=== PATIENT | male | born 1960 | race Caucasian/White ===

== ENCOUNTER 2020-04-29 02:37 | Inpatient (IN) ==
[2020-04-29] MEDS ORDERED: LORazepam 1 MG TAB SL STA (02:58)
--- NOTE | 2020-04-29 03:07 | Emergency Department Note ---
Impression & Plan Hypokalemia, Thought disorder, Alcohol abuse ED Provider Note NAME: ALEKSANDAR PIPER AGE: 59 SEX: M ARRIVES VIA: Ambulance INFORMANT: Patient EMS and state police ED PROVIDER(S): Sobeida Donnelly DO CHIEF COMPLAINT: Hypertension, hallucinations PLAN: Disposition: Medically evaluated for admission by the [facility] hospitalist Condition: Fair MEDICAL DECISION MAKING: This is a 59-year-old male patient from [facility] who developed agitation and aggressive behavior. The patient's blood pressure significantly elevated and he began to threaten staff. Patient has no known mental health history. He was in rehab at [facility] for alcohol abuse. The patient now seems extremely preoccupied with christianity and is not willing to cooperate with general medical evaluation for his altered mental status, new onset hallucinations and delusional behavior. The patient now seems to have new onset psychosis. We needed to rule out acute medical cause of his presentation. He required sedation with Haldol and Ativan. He was found to be hypokalemic and required IV potassium. The patient will be medically admitted and then further evaluated by psychiatry. Triage Nursing notes reviewed and agree them. Additional history obtained from [facility] police; EMS Prior medical records reviewed including records from [facility]. Vital Signs: reviewed and remarkable for severely elevated high blood pressure Differential diagnosis: Acute psychosis, alcohol withdrawal, Warnicke's encephalopathy, hepatic encephalopathy, hypertensive encephalopathy, intracranial mass, acute psychosis, thought disorder, mood disorder ER treatment provided: Sublingual Ativan-the patient refused IM Ativan IM Haldol IV K rider x2 IV normal saline bolus IV banana bag Diagnostics interpreted by me: ECG: Normal sinus rhythm at 89 with criteria for LVH. There is no ST segment elevation or signs of ischemia. There is no ectopy. Cardiac Monitoring: None Laboratory studies: See below Imaging studies: As per radiology CT SCAN OF THE BRAIN WITHOUT IV CONTRAST CLINICAL HISTORY: Change in mental status. COMPARISON STUDY: No priors. TECHNIQUE: Unenhanced axial CT scan of the brain is performed from the vertex to the skull base. A dose lowering technique was utilized adhering to the arabella Velez. CT DOSE: 537.48 mGy.cm FINDINGS: Brain parenchyma: There are age-related involutional changes noting mild subcortical and periventricular microangiopathic change. There is no hemorrhage, mass effect, or evidence of acute territorial ischemia by CT criteria. Hernadez- white matter differentiation is preserved. No extra-axial fluid collection is seen. Mineralization is noted in the basal ganglia. Ventricles, sulci, cisterns: Prominent secondary to involutional change. Intracranial vasculature: There is atherosclerotic calcification of the cavernous carotid arteries. Calvarium: Unremarkable. Sinuses and mastoids: The visualized paranasal sinuses are clear. The mastoid air cells are well pneumatized. Orbits: The bony orbits are grossly intact. There is a left ocular lens implant. IMPRESSION: There is no hemorrhage, mass effect, or evidence of acute territorial ischemia by CT criteria. HPI: 59/M arrives for evaluation of visual hallucinations and agitation. This is a 59-year-old male patient who is currently attending rehab for alcohol at [facility]. The staff explained that the patient was doing well over the past couple of days since he was admitted there but then this evening became more agitated and developed significantly elevated blood pressure. The patient says he has a history of schizophrenia and bulimia but then says that he does not. He explains that his and 2 children are in the room with him. He is obviously having visual hallucinations. He told me that he found God when he arrived at [facility]. He told nursing staff that he abuses alcohol and every drug under the son except for heroin. When I asked him about drug use, he denied that he ever used drugs. ROS: I could not complete a review of systems secondary to the patient's delirium PAST MEDICAL HISTORY:Unobtainable from patient due to his delirium PAST SURGICAL HISTORY:Unobtainable from patient due to his delirium FAMILY HISTORY:Unobtainable from patient due to his delirium SOCIAL HISTORY:He tells me that he is and has 2 grown children HOME MEDICATIONS:See list ALLERGIES:None VITALS:See Below PHYSICAL EXAMINATION: HEENT: Head - normocephalic and atraumatic Pupils are equal, round, and reactive to light. Extraocular eye muscles are intact, and sclera are anicteric. Nose - moist nasal mucosa without discharge. Mouth - moist buccal mucosa. Oropharynx is nonerythematous and there is no tonsillar exudate or jackson ma noted. Neck: Supple; no JVD or cervical lymphadenopathy Heart: Regular rate and rhythm. There is a normal S1 and S2 with no murmurs, clicks, or gallops appreciated. Lungs: Clear to auscultation bilaterally with no wheezes, rales, or rhonchi. Abdomen: Soft, completely nontender, nondistended, with good bowel sounds. There are no palpable pulsatile masses or hepatosplenomegaly. There is no gua rding, rigidity, or rebound noted. Extremities: No evidence of cyanosis, clubbing, or edema. There are easily palpable peripheral pulses. Skin: warm and dry with good turgor and no rashes. Psych: The patient is easily agitated with a flight of thoughts. He is having obvious visual hallucinations. He seems to be delirious. ED COURSE: Times/Reassessments: 0240: The patient was evaluated in room A6. I was accompanied by security and the ED psychiatric classification case manager. The patient was agreeable to have labs drawn but declined taking sublingual Ativan. 0430: I waited the patient at this time and he was praying on his knees. 0600: A 302 was petitioned and the patient was read his rights as he is unable to care for himself. The patient received 10 mg of IM Haldol and 2 mg of IM Ativan. At this time, the patient became more cooperative and an IV lock was initiated and the patient began to receive IV potassium supplementation. He was placed on a monitoring manager and pulse oximeter. A twelve-lead EKG was obtained. 0800: I discussed the case with the [facility] hospitalist service. Sobeida Donnelly DO Past Med/Surg History Social History Smoking Status: Never smoker Allergies Allergies Allergy/AdvReac Type Severity Reaction Status Date / Time No Known Drug Allergies Allergy Unknown . Verified 01/27/16 11:03 Home Meds Home Medications Medication Instructions Recorded Confirmed diazepam [Valium] 5 mg PO DAILY 04/29/20 04/29/20 escitalopram oxalate [Lexapro] 20 mg PO DAILY 04/29/20 04/29/20 folic acid 1 mg PO DAILY 04/29/20 04/29/20 thiamine HCl (vitamin B1) 100 mg PO DAILY 04/29/20 04/29/20 vitamin M78-[id number] acid 1,000 mcg PO DAILY 04/29/20 04/29/20 Results & Data (ED) Vital Signs Vital Signs - 24 hr 04/29/20 02:46 04/29/20 04:34 04/29/20 06:10 Temperature 37 C Temperature Source Oral Pulse Rate 95 H Pulse Rate [Finger] 101 H Pulse Rhythm [Finger] Regular Pulse Strength [Finger] Normal Respiratory Rate 20 22 18 Respiratory Effort / Characteristics Non-Labored Spontaneous Non-Labored Respiratory Depth Normal Normal Respiratory Pattern Regular Blood Pressure 219/130 H Blood Pressure [Left Arm] 190/103 H Blood Pressure [Right Arm] 183/118 H Blood Pressure Mean 159 Blood Pressure Mean [Left Arm] 132 Blood Pressure Mean [Right Arm] 139 Blood Pressure Position [Left Arm] Lying Pulse Oximetry 98 98 96 Oxygen Delivery Method Room Air Room Air Room Air Sepsis Recent Fever Within 48 Hours No Sepsis New/Unexplained Change in Mental Status Yes Sepsis Action Taken by Nursing No Action Required 04/29/20 06:41 04/29/20 07:00 04/29/20 07:30 Temperature Temperature Source Pulse Rate Pulse Rate [Finger] 94 H 82 69 Pulse Rhythm [Finger] Regular Regular Pulse Strength [Finger] Respiratory Rate 20 18 17 Respiratory Effort / Characteristics Non-Labored Spontaneous Non-Labored Spontaneous Non-Labored Spontaneous Respiratory Depth Normal Normal Normal Respiratory Pattern Regular Regular Blood Pressure Blood Pressure [Left Arm] 167/100 H 136/82 103/68 Blood Pressure [Right Arm] Blood Pressure Mean Blood Pressure Mean [Left Arm] 122 100 79 Blood Pressure Mean [Right Arm] Blood Pressure Position [Left Arm] Pulse Oximetry 98 98 96 Oxygen Delivery Method Room Air Room Air Room Air Sepsis Recent Fever Within 48 Hours Sepsis New/Unexplained Change in Mental Status Sepsis Action Taken by Nursing Laboratory Data Result diagrams: 04/29/20 03:30 04/29/20 03:30 Lab Results 04/29/20 04/29/20 04/29/20 Range/Units 03:30 03:30 03:30 WBC 4.03 L (4.8-10.8) K/uL RBC 4.08 L (4.7-6.1) M/uL Hgb 13.2 L (14.0-18.0) g/dL Hct 37.7 L (42-52) % MCV 92.4 (80-100) fL MCH 32.4 (25-34) pg MCHC 35.0 (32-36) g/dL RDW Std Deviation 45.8 (36.4-46.3) fL RDW Coeff of Patti 13.5 (11.5-14.5) % Plt Count 142 (130-400) K/uL MPV 9.0 (7.4-10.4) fL Immature Gran % (Auto) 0.2 % Neut % (Auto) 64.8 % Lymph % (Auto) 22.6 % [place] % (Auto) 9.2 % Eos % (Auto) 2.2 % Baso % (Auto) 1.0 % Neut # (Auto) 2.61 (1.4-6.5) K/uL Lymph # (Auto) 0.91 L (1.2-3.4) K/uL [place] # (Auto) 0.37 (0.11-0.59) K/uL Eos # (Auto) 0.09 (0-0.5) K/uL Baso # (Auto) 0.04 (0-0.2) K/uL Immature Gran # (Auto) 0.01 (0.00-0.02) K/uL Sodium 141 (136-145) mmol/L Potassium 2.8 L (3.5-5.1) mmol/L Chloride 108 H (98-107) mmol/L Carbon Dioxide 26 (21-32) mmol/L Anion Gap 7.0 (3-11) BUN 13 (7-18) mg/dl Creatinine 1.10 (0.6-1.4) mg/dl Est Cr Clr Drug Dosing Not Reportable Est GFR ( Amer) 84.1 Est GFR (Non-Af Amer) 72.6 BUN/Creatinine Ratio 12.0 (10-20) Glucose 102 H (70-99) mg/dl Calcium 8.3 L (8.5-10.1) mg/dl Total Bilirubin 0.7 (0.2-1) mg/dl AST 65 H (15-37) U/L ALT 48 (12-78) U/L Alkaline Phosphatase 101 (45-117) U/L Total Protein 7.3 (6.4-8.2) gm/dl Albumin 3.6 (3.4-5.0) gm/dl Globulin 3.7 (2.5-4.0) gm/dl Albumin/Globulin Ratio 1.0 (0.9-2) TSH 5.270 H (0.300-4.500) uIu/ml Free T4 0.94 (0.8-1.6) ng/dl Urine Color Urine Appearance (Clear) Urine pH (4.5-7.5) Ur Specific [place] (1.000-1.030) Urine Protein (Negative) Urine Glucose (UA) (Negative) Urine Ketones (Negative) Urine Blood (Negative) Urine Nitrite (Negative) Urine Bilirubin (Negative) Urine Urobilinogen (Negative) Ur Leukocyte Esterase (Negative) Salicylates < 1.7 L (2.8-20) mg/dl Urine Opiates Screen (Neg) Ur Methadone, Qual (Neg) Acetaminophen < 2 L (10-30) ug/ml Urine Barbiturates (Neg) Ur Phencyclidine (PCP) (Neg) U Amphetamin/Meth Scrn (Neg) MDMA (Ecstasy) Screen (Neg) U Benzodiazepines Scrn (Neg) Ur Cocaine Metabolite (Neg) U Marijuana (THC) Screen (Neg) Ethyl Alcohol mg/dL (0-3) mg/dl 04/29/20 04/29/20 04/29/20 Range/Units 03:30 06:28 06:28 WBC (4.8-10.8) K/uL RBC (4.7-6.1) M/uL Hgb (14.0-18.0) g/dL Hct (42-52) % MCV (80-100) fL MCH (25-34) pg MCHC (32-36) g/dL RDW Std Deviation (36.4-46.3) fL RDW Coeff of Patti (11.5-14.5) % Plt Count (130-400) K/uL MPV (7.4-10.4) fL Immature Gran % (Auto) % Neut % (Auto) % Lymph % (Auto) % [place] % (Auto) % Eos % (Auto) % Baso % (Auto) % Neut # (Auto) (1.4-6.5) K/uL Lymph # (Auto) (1.2-3.4) K/uL [place] # (Auto) (0.11-0.59) K/uL Eos # (Auto) (0-0.5) K/uL Baso # (Auto) (0-0.2) K/uL Immature Gran # (Auto) (0.00-0.02) K/uL Sodium (136-145) mmol/L Potassium (3.5-5.1) mmol/L Chloride (98-107) mmol/L Carbon Dioxide (21-32) mmol/L Anion Gap (3-11) BUN (7-18) mg/dl Creatinine (0.6-1.4) mg/dl Est Cr Clr Drug Dosing Est GFR ( Amer) Est GFR (Non-Af Amer) BUN/Creatinine Ratio (10-20) Glucose (70-99) mg/dl Calcium (8.5-10.1) mg/dl Total Bilirubin (0.2-1) mg/dl AST (15-37) U/L ALT (12-78) U/L Alkaline Phosphatase (45-117) U/L Total Protein (6.4-8.2) gm/dl Albumin (3.4-5.0) gm/dl Globulin (2.5-4.0) gm/dl Albumin/Globulin Ratio (0.9-2) TSH (0.300-4.500) uIu/ml Free T4 (0.8-1.6) ng/dl Urine Color Yellow Urine Appearance Clear (Clear) Urine pH 5.5 (4.5-7.5) Ur Specific [place] 1.025 (1.000-1.030) Urine Protein Negative (Negative) Urine Glucose (UA) Negative (Negative) Urine Ketones 1+ H (Negative) Urine Blood Negative (Negative) Urine Nitrite Negative (Negative) Urine Bilirubin Negative (Negative) Urine Urobilinogen Negative (Negative) Ur Leukocyte Esterase Negative (Negative) Salicylates (2.8-20) mg/dl Urine Opiates Screen Neg (Neg) Ur Methadone, Qual Neg (Neg) Acetaminophen (10-30) ug/ml Urine Barbiturates Neg (Neg) Ur Phencyclidine (PCP) Neg (Neg) U Amphetamin/Meth Scrn Neg (Neg) MDMA (Ecstasy) Screen Neg (Neg) U Benzodiazepines Scrn Pos H (Neg) Ur Cocaine Metabolite Neg (Neg) U Marijuana (THC) Screen Neg (Neg) Ethyl Alcohol mg/dL < 3.0 (0-3) mg/dl Administered Medications Potassium Chloride (K Amado / Wtr) 10 meq in 100 mls @ 100 mls/hr IV Q1H TEGAN Stop: 04/29/20 08:14 Last Admin: 04/29/20 07:20 Dose: 100 mls/hr Documented by: [id number] Infusion: 04/29/20 07:14 Dose: 100 mls/hr Documented by: [id number] Admin: 04/29/20 06:14 Dose: 100 mls/hr Documented by: [id number] Discontinued Medications Haloperidol Lactate (Haloperidol Lactate 5 Mg/Ml 1 Ml Vial) Confirm Administered Dose 10 mg .ROUTE .STK-MED ONE Stop: 04/29/20 05:54 Last Admin: 04/29/20 06:00 Dose: 10 mg Documented by: [id number] Haloperidol Lactate (Haloperidol Lactate 5 Mg/Ml 1 Ml Vial) 10 mg IM NOW STA Stop: 04/29/20 06:29 Last Admin: 04/29/20 06:43 Dose: Not Given Documented by: [id number] Sodium Chloride (Nss) 500 mls @ 999 mls/hr IV .Q31M ONE Stop: 04/29/20 06:35 Last Infusion: 04/29/20 06:56 Dose: 0 mls/hr Documented by: [id number] Admin: 04/29/20 06:12 Dose: 999 mls/hr Documented by: [id number] Lorazepam (Lorazepam 1 Mg Tab) 2 mg SL NOW STA Stop: 04/29/20 02:59 Last Admin: 04/29/20 05:12 Dose: Not Given Documented by: [id number] Lorazepam (Lorazepam 2 Mg/Ml Vial (Im Use)) Confirm Administered Dose 2 mg .ROUTE .STK-MED ONE Stop: 04/29/20 05:54 Last Admin: 04/29/20 06:00 Dose: 2 mg Documented by: [id number] Lorazepam (Lorazepam 2 Mg/Ml Vial (Im Use)) 2 mg IM NOW STA Stop: 04/29/20 06:29 Last Admin: 04/29/20 06:43 Dose: Not Given Documented by: [id number] Potassium Chloride (Potassium Chloride 10 Meq / 100ml Wtr) Confirm Administered Dose 10 meq IV .STK-MED ONE Stop: 04/29/20 06:06 Last Admin: 04/29/20 06:14 Dose: Not Given Documented by: [id number] Discharge Plan Visit Data Chief Complaint: Mental Health Evaluation Stated Complaint: PANIC ATTACK/ALTERED MENTAL STATUS ED Provider: Sobeida Donnelly Discharge Problem: Hypokalemia, Thought disorder, Alcohol abuse Forms Stand Alone Forms: [facility], Suicide Prevention Resources Prescriptions Prescriptions: No Action thiamine HCl (vitamin B1) 100 mg Tablet 100 mg PO DAILY RF: 0 folic acid 1 mg Tablet 1 mg PO DAILY RF: 0 diazepam [Valium] 5 mg Tablet 5 mg PO DAILY RF: 0 escitalopram oxalate [Lexapro] 20 mg Tablet 20 mg PO DAILY RF: 0 vitamin W40-targt acid 1,000 mcg PO DAILY RF: 0
[2020-04-29 03:46] LABS: Basophils # (auto) 0.04 K/uL (0-0.2); Eosinophils # (auto) 0.09 K/uL (0-0.5); Eosinophils % (auto) 2.2 %; Hematocrit (blood only) 37.7 % (42-52); Hemoglobin 13.2 g/dL (14.0-18.0); Immature Granulocytes # (auto) 0.01 K/uL (0.00-0.02); Immature Granulocytes % (auto) 0.2 %; Lymphocytes # (auto) 0.91 K/uL (1.2-3.4); Lymphocytes % (auto) 22.6 %; Mean Corpuscular Hemoglobin 32.4 pg (25-34); Mean Corpuscular Volume 92.4 fL (80-100); Monocytes # (auto) 0.37 K/uL (0.11-0.59); Monocytes % (auto) 9.2 %; Neutrophils # (auto) 2.61 K/uL (1.4-6.5); Neutrophils % (auto) 64.8 %; Platelet Count 142 K/uL (130-400); RDW Coefficient of Variation 13.5 % (11.5-14.5); RDW Standard Deviation 45.8 fL (36.4-46.3); Red Blood Count 4.08 M/uL (4.7-6.1); White Blood Count 4.03 K/uL (4.8-10.8)
[2020-04-29 04:02] LABS: Alanine Aminotransferase 48 U/L (12-78); Albumin Level 3.6 gm/dl (3.4-5.0); Aspartate Aminotransferase 65 U/L (15-37); Blood Urea Nitrogen 13 mg/dl (7-18); Calcium 8.3 mg/dl (8.5-10.1); Carbon Dioxide 26 mmol/L (21-32); Chloride 108 mmol/L (98-107); Est GFR (African American) 84.1; Est GFR (Non-African American) 72.6; Glucose 102 mg/dl (70-99); Potassium 2.8 mmol/L (3.5-5.1); Sodium 141 mmol/L (136-145)
[2020-04-29 04:04] LABS: Acetaminophen < 2 ug/ml (10-30); Salicylate < 1.7 mg/dl (2.8-20)
[2020-04-29 04:13] LABS: Alkaline Phosphatase 101 U/L (45-117); Bilirubin,Total 0.7 mg/dl (0.2-1); Globulin 3.7 gm/dl (2.5-4.0); Total Protein 7.3 gm/dl (6.4-8.2)
[2020-04-29 04:25] LABS: T4 Free Thyroxine 0.94 ng/dl (0.8-1.6)
[2020-04-29] MEDS ORDERED: HALOPERIDOL LACTATE 5 MG/ML 1 ML VIAL ONE (05:53)
[2020-04-29] MEDS ORDERED: LORazepam 2 MG/ML VIAL (IM USE) ONE (05:53)
[2020-04-29] MEDS ORDERED: POTASSIUM CHLORIDE 10 MEQ / 100ML WTR IV ONE (06:05)
[2020-04-29] MEDS ORDERED: SODIUM CHLORIDE 0.9% 500 ML IV ONE (06:05)
[2020-04-29] MEDS: POTASSIUM CHLORIDE / WTR 10 MEQ/100 ML PLCT IV SCH ×2 (06:14→07:20)
[2020-04-29] MEDS ORDERED: LORazepam 2 MG/ML VIAL (IM USE) IM STA (06:28)
[2020-04-29] MEDS ORDERED: HALOPERIDOL LACTATE 5 MG/ML 1 ML VIAL IM STA (06:28)
[2020-04-29 06:39] LABS: Appearance Urine Clear (Clear); Bilirubin Urine Negative (Negative); Blood Urine Negative (Negative); Color Urine Yellow; Glucose Urine UA Negative (Negative); Ketones Urine 1+ (Negative); Leukocyte Esterase Urine Negative (Negative); Nitrite Urine Negative (Negative); Protein Urine Negative (Negative); Specific Gravity Urine 1.025 (1.000-1.030); Urobilinogen Urine Negative (Negative); pH Urine 5.5 (4.5-7.5)
[2020-04-29 06:58] LABS: Amphetamines+Metham, Urine Neg (Neg); Barbiturates, Urine Neg (Neg); Benzodiazepine, Urine Pos (Neg); Cocaine, Urine Neg (Neg); MDMA (Ecstacy), Urine Neg (Neg); Methadone, Urine Neg (Neg); Opiate, Urine Neg (Neg); Phencyclidine, Urine Neg (Neg)
--- NOTE | 2020-04-29 07:17 | CT Scan Report ---
CT SCAN OF THE BRAIN WITHOUT IV CONTRAST CLINICAL HISTORY: Change in mental status. COMPARISON STUDY: No priors. TECHNIQUE: Unenhanced axial CT scan of the brain is performed from the vertex to the skull base. A do se lowering technique was utilized adhering to the principles of ALARA. CT DOSE: 537.48 mGy.cm FINDINGS: Brain parenchyma: There are age-related involutional changes noting mild subcortical and periventric ular microangiopathic change. There is no hemorrhage, mass effect, or evidence of acute territorial i schemia by CT criteria. Hernadez-white matter differentiation is preserved. No extra-axial fluid collecti on is seen. Mineralization is noted in the basal ganglia. Ventricles, sulci, cisterns: Prominent secondary to involutional change. Intracranial vasculature: There is atherosclerotic calcification of the cavernous carotid arteries. Calvarium: Unremarkable. Sinuses and mastoids: The visualized paranasal sinuses are clear. The mastoid air cells are well pneu matized. Orbits: The bony orbits are grossly intact. There is a left ocular lens implant. IMPRESSION: There is no hemorrhage, mass effect, or evidence of acute territorial ischemia by CT lilyt tia. ACT 112: Negative or not required by law. Electronically signed by: Hieu Jonas M.D. 04/29/2020 7:16 AM
[2020-04-29] MEDS ORDERED: MULTI-VITAMIN INFUSION 10 ML, THIAMINE HCL 100 MG, FOLIC ACID 1 MG in SODIUM CHLORIDE 0... IV ONE (08:08)
--- NOTE | 2020-04-29 09:24 | History & Physical Report ---
Date of Service April 29, 2020 Assessment & Plan (1) Alcohol withdrawal: Recently admitted at [facility] on 04/24 and discharged to [facility] alcohol rehab on 04/25 Last alcohol drink as per 04/24 Alcohol level in the ER less than 3 Hx of Alcohol withdrawal in the past Received IV Ativan, Hadol and banana bag in the ER Will start on gabapentin and A alcohol withdrawal protocol Will add librim 10mg BID, then taper Continue thiamine and folic acid Will monitor closely for DT Counseling on alcohol cessation (2) Psychosis: (3) Depression: Suicidal ideation Possible related to alcohol withdrawal Vs underlying psychiatric condition and SSRI that can lead to psychosis/manic episode Psych consulted Recommended to hold the Escitalopram for now Currently denies any suicide Will put on 1 to 1 observation (4) Abnormal TSH: Possible related to acute illness Free T4 normal Will need to check TSH in 4 weeks (5) Hypokalemia: Mostly related to diarrhea Potassium on admission 2.8 K replaced Continue monitor BMP Elevated BP Possible related to alcohol withdrawal and hospital setting If BP continues to elevate, will add clonidine prn Continue monitor BP DVT px on lovenox subq Code status FULL CODE History of Present Illness Chief Complaint: Delusional and agitation Primary Care Provider: Sylvia Reza 59 years old male with past medical history of alcohol withdrawal, alcohol abuse, suicidal ideation, anxiety disorder was sent from [facility] alcohol rehab after patient became agitated and aggressive. Patient was recently admitted at [facility] on 04/24 then discharged on 04/25 to [facility] for alcohol abuse and suicidal ideation. In the last admission at [facility], patient was having suicidal thoughts where he expressed about having a loaded gun at home. Now patient developed hallucination, psychosis behavior while getting treatment for alcohol. said that last night pt became diaphoresis, confused with aggressive behavior at [facility]. Blood pressure was elevated. at bedside said patient drinks about 12 pack of beer daily. No prior history of DT, but patient has history of alcohol withdrawal in the past as per . Patient said he is depressed and his mind is racing and he is dealing with a lot right now. said that he was having diarrhea at [facility] that seems to improve. Currently denies any suicidal ideation, or any thoughts of hurting himself or others, chest pain, palpitation, shortness of breath or hearing any voice. Currently on RM A6 lying in bed very calm and cooperative. Allergies Allergy/AdvReac Type Severity Reaction Status Date / Time No Known Drug Allergies Allergy Unknown . Verified 01/27/16 11:03 Home Medications Home Medications Medication Instructions Recorded Confirmed Type diazepam [Valium] 5 mg PO DAILY 04/29/20 04/29/20 History escitalopram oxalate [Lexapro] 20 mg PO DAILY 04/29/20 04/29/20 History folic acid 1 mg PO DAILY 04/29/20 04/29/20 History thiamine HCl (vitamin B1) 100 mg PO DAILY 04/29/20 04/29/20 History vitamin O39-nzkld acid 1,000 mcg PO DAILY 04/29/20 04/29/20 History Past Med/Surg History Social History Smoking Status: Former smoker Second Hand Exposure: No; Do You Dip or Chew Tobacco: No; Tobacco Cessation Education Requested by Patient: No Hx Alcohol Use: Yes Alcohol type: beer Hx Substance Use: No Communication Ability: Effective [employer] Electrician Required: No marital status: Current Living Situation: Spouse Other Information That Helps Us Care for You: No Feels Safe at Home: Yes Review of Systems Review of Systems: All systems reviewed & are unremarkable except as noted in HPI & below Physical Exam Physical Exam: General- No acute distress Head- atraumatic Eyes- PERRL, EOMI, ENT- oropharynx clear Neck- supple, no JVD Lungs- clear to auscultation Heart- regular rhythm; no murmur Abdomen- normal bowel sounds, soft, nontender Extremities- no calf tenderness Neuro- alert, oriented x 3; PERRL, EOMI; no facial palsy; no dysarthria, +tremors and +fingers to touch Skin- warm & dry Results & Data Results & Data ([facility]) Vital Signs (Past 12 Hours) Vital Signs Temp Pulse Pulse Resp BP BP BP 04/29/20 09:00 67 18 142/84 H 04/29/20 07:30 69 17 103/68 04/29/20 07:00 82 18 136/82 04/29/20 06:41 94 H 20 167/100 H 04/29/20 06:10 18 190/103 H 04/29/20 04:34 101 H 22 183/118 H 04/29/20 02:46 37 C 95 H 20 219/130 H Pulse Ox 04/29/20 09:00 97 04/29/20 07:30 96 04/29/20 07:00 98 04/29/20 06:41 98 04/29/20 06:10 96 04/29/20 04:34 98 04/29/20 02:[address] SCAN OF THE BRAIN WITHOUT IV CONTRAST CLINICAL HISTORY: Change in mental status. COMPARISON STUDY: No priors. TECHNIQUE: Unenhanced axial CT scan of the brain is performed from the vertex to the skull base. A dose lowering technique was utilized adhering to the principles of ALARA. CT DOSE: 537.48 mGy.cm FINDINGS: Brain parenchyma: There are age-related involutional changes noting mild subcortical and periventricular microangiopathic change. There is no hemorrhage, mass effect, or evidence of acute territorial ischemia by CT criteria. Hernadez- white matter differentiation is preserved. No extra-axial fluid collection is seen. Mineralization is noted in the basal ganglia. Ventricles, sulci, cisterns: Prominent secondary to involutional change. Intracranial vasculature: There is atherosclerotic calcification of the cavernous carotid arteries. Calvarium: Unremarkable. Sinuses and mastoids: The visualized paranasal sinuses are clear. The mastoid air cells are well pneumatized. Orbits: The bony orbits are grossly intact. There is a left ocular lens implant. IMPRESSION: There is no hemorrhage, mass effect, or evidence of acute territorial ischemia by CT criteria. ACT 112: Negative or not required by law. Electronically signed by: Hieu Jonas M.D. 04/29/2020 7:16 AM Dictated: 04/29/20 0714 Transcribed: 04/29/20 0714
--- NOTE | 2020-04-29 12:48 | Electrocardiogram Report ---
Test Reason : Blood Pressure : / mmHG Vent. Rate : 089 BPM Atrial Rate : 089 BPM P-R Int : 168 ms QRS Dur : 086 ms QT Int : 390 ms P-R-T Axes : 076 046 025 degrees QTc Int : 474 ms Normal sinus rhythm Voltage criteria for left ventricular hypertrophy Cannot rule out Septal infarct , age undetermined Abnormal ECG No previous ECGs available Confirmed by Herbie Aj ([id number]) on 04/29/2020 12:48:00 PM Referred By: REFERRED SELF Confirmed By:Herbie Aj
[2020-04-29] MEDS ORDERED: GABAPENTIN 1200MG ALCOHOL WITHDRAWAL LOAD PO STA (14:20)
[2020-04-29] MEDS ORDERED: POTASSIUM CHLORIDE 20 MEQ TABCR PO STA (14:20)
[2020-04-29] MEDS ORDERED: LORazepam 1 MG/2 ML VIAL IV PRN (14:20)
[2020-04-29] MEDS ORDERED: POTASSIUM CHLORIDE 10 MEQ TABCR PO STA (14:20)
[2020-04-29] MEDS ORDERED: GABAPENTIN 600 MG TAB PO ONE (14:30)
[2020-04-29] MEDS ORDERED: PATIENT'S HEIGHT AND/OR WEIGHT NEEDED SCH (14:30)
--- NOTE | 2020-04-29 16:21 | Communication Note ---
Date of Service: April 29, 2020 Received stat psychiatric consultation on Mr. Villalobos for "suicidal ideation." Confirmed with hospitalist attending that consultation was not intended to be stat, and order was subsequently changed to routine. While our service attempts to meet with the patient and gather available collateral information, I would suggest holding escitalopram. In part, this is due to patient going through alcohol withdrawal, and concern that psychotropic medications can lower the seizure threshold and increase risk of withdrawal seizures. Also, it appears patient is delusional and agitated. While this may be a function of alcohol withdrawal alone, there is also the possibility it is related to an underlying psychiatric condition and escitalopram may increase concern for lyndon/psychosis if there is a more substantial psychiatric condition at play. Will attempt to gather additional information and will follow-up with patient to complete formal psychiatric consultation.
[2020-04-29] MEDS ORDERED: POTASSIUM CHLORIDE 20 MEQ TABCR PO ONE (17:47)
[2020-04-29] MEDS: GABAPENTIN 600 MG TAB PO SCH (21:01)
[2020-04-29] MEDS ORDERED: OLANZAPINE ZYDIS 5 MG ORALLY DIS. TAB PO PRN (21:22)
[2020-04-29] MEDS ORDERED: OLANZapine 10 MG/2.1 ML SDV IM PRN (21:26)
[2020-04-30] MEDS: GABAPENTIN 600 MG TAB PO SCH ×3 (06:02→21:26)
[2020-04-30 07:36] LABS: Blood Urea Nitrogen 5 mg/dl (7-18); Calcium 8.3 mg/dl (8.5-10.1); Carbon Dioxide 26 mmol/L (21-32); Chloride 112 mmol/L (98-107); Est GFR (African American) 108.2; Est GFR (Non-African American) 93.4; Glucose 94 mg/dl (70-99); Magnesium 2.1 mg/dl (1.8-2.4); Potassium 3.8 mmol/L (3.5-5.1); Sodium 143 mmol/L (136-145)
[2020-04-30] MEDS: ENOXAPARIN INJ 40 MG/0.4 ML SYR SQ SCH (08:06)
[2020-04-30] MEDS: CYANOCOBALAMIN 500 MCG TABLET (VITAMIN B-12) PO SCH (08:06)
[2020-04-30] MEDS: FOLIC ACID 1 MG TAB PO SCH (08:06)
[2020-04-30] MEDS: THIAMINE HCL 100 MG TAB PO SCH (08:06)
[2020-04-30] MEDS ORDERED: ESCITALOPRAM OXALATE 20 MG TAB PO SCH (09:00)
[2020-04-30] MEDS ORDERED: LOPERAMIDE HCL 2 MG CAP PO PRN (09:20)
--- NOTE | 2020-04-30 11:30 | Psychiatric Consultation ---
Date of Consultation April 30, 2020 Impression / Recommendations Impression Dr. Susannah Byers was directly involved in review and discussion of the patient's case and participated in medical decision making regarding treatment recommendations. RECOMMENDATIONS: 04/30 - Psychiatric consultation requested by hospitalist team to evaluate patient for suicidality. Pt brought to the ED from [facility] rehab on a 302 warrant after he began behaving bizarrely and had made statements to harm himself as well as staff. - There is not an immediately clear explanation for patient's acute onset of bizarre behavior. Contributing factors certainly may include symptoms related to alcohol withdrawal, sleep depravation, possibility of continued substance use (contraband at rehab, whether known to patient or not), or potential for adverse drug reaction. Records from [facility] indicates patient was continued on escitalopram during his stay, and does not mention reported home dose of mirtazapine 15mg. While it is possible, it is unlikely that simply adjusting dosing of an SSRI or discontinuation of mirtazapine could explain the entirety of patient's presenting symptoms. - Rapid onset of symptoms, as well as the fact that the patient's mental status rapidly cleared, is not suggestive of a primary psychiatric conditions such as bipolar disorder or a primary thought disorder. Admittedly, his symptoms are not stereotypical of alcohol withdrawal/delirium tremens either. Recommend continued monitoring for withdrawal symptoms and observation for similar presentations while in the hospital setting. If patient's status remains unchanged, would suggest 302 warrant be dispoed - as patient's behavior was likely not directly related to a primary psychiatric condition and he is presenting denying SI/HI, SIB, A/V hallucinations, delusions, or other symptoms amenable to inpatient psychiatric treatment. - If patient's mental status remains clear, it is possible to resume escitalopram but at 10mg daily with titration as indicated/tolerated. PRN olanzapine has been ordered for agitation as necessary, though patient has yet to require this medication. No additional recommendations in regard to medication adjustments. - If patient does not have any additional episodes of confusion/delusions, it would seem appropriate to transfer him back to [facility] to again engage in D&A rehab to address his alcohol abuse concerns. In his clear state, patient is denying SI and HI and admittedly has not had episodes similar to this in the past. - Please reach out to our service with any additional questions or updates. Psych History Identifying Data 59-year-old male admitted medically on 04/29/2020 after presenting to the ED with AMS from [facility]. Psychiatric consultation is requested by hospitalist team to evaluate patient for suicidality. Chief Complaint "I was at rehab at [facility], and I was fine. I don't know what happened." History of Present Illness Juan A Villalobos is a 59-year-old male admitted medically on 04/29/2020 after p resenting to the ED via EMS from [facility], where he had been receiving treatment for 3 days. Psychiatric consultation was requested, as patient was brought to the ED on a 302 warrant for bizarre behavior and threats of harm to self and staff at [facility]. 302 petitioning statement was completed in the ED by psychiatric case management director. Quotes from the statement include: "Juan A arrived @[facility] ER via EMS and PSP from [facility] . Per Bethanie at [facility], Juan A was admitted to their facility three days ago and was fine up until this evening...patient approached the nursing station [facility] and said he was "obsessive-compulsive" and needed to go to the ER...he was visibly anxious and sweating. ..noted his blood pressure was elevated. [facility] called EMS and while EMS at facility patient stated hewas "going to kill himself and everyone else." Upon arrival to the ED, Juan A does not appear to be in touch with reality..believes the year is 1959...sees his and two children in the room. Juan A stated he was Brad and then stated he is Satan. Juan A believes the world is ending and on the floor praying. Juan A is refusing medications to treat his hypertension and hypokalemia. Due to delirium, Juan A is unable to make decisions for his personal or medical care. Juan A stated he is "schizophrenia"..." Patient's case was reviewed during morning report with psychiatric nurse liaison and supervising psychiatrist. Pt is cooperative with psychiatric assessment. , Bea, is present in room and provides additional history with patient's consent. Pt states he is feeling "better" presently. He states "I was at rehab at [facility], and I was fine. I don't know what happened." Pt and suggest there may have been some adjustments made to his medications at rehab that "threw me into a manic state, I was having rambling thoughts and intense anxiety." Pt states that up until that moment, he had been feeling well physically, "I was going to all the meetings, walking around just fine." Pt states "apparently I started talking violence and saying I thought I could hurt myself. I remember it, but I don't feel like I was controlling it." Pt denies history of similar events. According to the patient's , he is prescribed escitalopram 10mg daily, mirtazapine 15mg each evening, and lorazepam 0.5mg up to TID prn. It was suggested that patient had not received mirtazapine during his brief time at [facility], and patient states "I didn't sleep at all." Pt admits to concerns related to alcohol use, but denies changes in mental health concerns. Pt states that he has used alcohol on a daily basis for several years. He states that he had regularly consumed 2-3 beers (generally >8%) throughout the day. 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 Pt states that his use further increased when he retired in 12/2019 (8-12 beers per day). He admits to a previous stay at rehab, at the [facility] in 1990. Pt reports intent to return to [facility] when he is medically cleared. Past Psychiatric History Current Psychiatric Diagnosis: Available records suggest only prior diagnosis is anxiety Previous Psych Admissions: None History of Previous Suicide Attempt: No Past Medication Trials: Pt has only been prescribed his current psychotropic medications: escitalopram, mirtazapine, and lorazepam. Allergies Allergy/AdvReac Type Severity Reaction Status Date / Time No Known Drug Allergies Allergy Unknown . Verified 01/27/16 11:03 Home Medications Home Medications Medication Instructions Recorded Confirmed Type diazepam [Valium] 5 mg PO DAILY 04/29/20 04/29/20 History escitalopram oxalate [Lexapro] 20 mg PO DAILY 04/29/20 04/29/20 History folic acid 1 mg PO DAILY 04/29/20 04/29/20 History thiamine HCl (vitamin B1) 100 mg PO DAILY 04/29/20 04/29/20 History vitamin Q44-lelie acid 1,000 mcg PO DAILY 04/29/20 04/29/20 History Substance Abuse History Pt admits to daily alcohol consumption. Most recently, he has consumed 8-12 beers (>8%) daily for the past 3 years - previous history of excessive use as well. Pt denies illicit substance use. Personal History Living Arrangements: Home (with and two young children ) Employment Status: Retired Marital Status: Number Of Children: 2 Patient History Social History Smoking Status: Former smoker Second Hand Exposure: No; Do You Dip or Chew Tobacco: No; Tobacco Cessation Education Requested by Patient: No Hx Alcohol Use: Yes Alcohol type: beer Hx Substance Use: No Communication Ability: Effective Process Coach Required: No Beliefs That Will Affect Care: None marital status: Current Living Situation: Spouse Other Information That Helps Us Care for You: No Feels Safe at Home: Yes Physical Exam Psychiatric: Orientation: alert, oriented x 3 and cooperative (and pleasant) Apperance: appropriately dressed, appropriately groomed and appeared stated age Eye Contact: good eye contact Motor Behavior: no abnormal motor movements (observed while laying in bed) Speech: normal rate/rhythm/volume of speech Affect: euthymic affect; no depressed affect and no anxious affect Mood: no depressed mood and no anxious mood "I feel a lot better now" Thought Process: goal directed thought process, clear/coherent thought process and thought association intact Thought Content: reality based without delusions; not paranoid, no persecution and no hopelessness Suicidal Thoughts: denies suicidal thoughts, denies suicidal plan and denies suicidal intent Homicidal Thoughts: denies homicidal thoughts and denies homicidal intent Hallucinations: no auditory hallucinations and no visual hallucinations Cognition: recent memory grossly intact (admits to recalling events last evening, but felt unable to control actions), attention grossly intact and language grossly intact Estimated Intelligence: consistent with education level Insight: + fair insight Judgement: + fair judgement Vital Signs (Past 24 Hours): Last Vital Signs Temp 36.9 C 04/30/20 07:48 Pulse 68 04/30/20 08:00 Resp 18 04/30/20 07:48 BP 143/86 H 04/30/20 07:48 Pulse Ox 95 04/30/20 07:48 Review of Systems Constitutional: denied Cardiovascular: denied Respiratory: denied Gastrointestinal: denied Neurological: denied Psychiatric: denies symptoms other than stated above Total of at least 10 systems reviewed, pertinent positives as above and in HPI. Results & Data (PSY) Medications Administered Chlordiazepoxide HCl (Chlordiazepoxide Hcl 10 Mg Cap) 10 mg PO Q12 TEGAN Stop: 05/29/20 22:59 Last Admin: 04/30/20 08:05 Dose: 10 mg Documented by: [id number] Admin: 04/29/20 23:30 Dose: 10 mg Documented by: [id number] Cyanocobalamin (Cyanocobalamin 500 Mcg Tablet (Vitamin B-12)) 1,000 mcg PO DAILY TEGAN Stop: 05/30/20 08:59 Last Admin: 04/30/20 08:06 Dose: 1,000 mcg Documented by: [id number] Enoxaparin Sodium (Enoxaparin Inj 40 Mg/0.4 Ml Syr) 40 mg SQ QAM TEGAN Stop: 05/30/20 08:59 Last Admin: 04/30/20 08:06 Dose: 40 mg Documented by: [id number] Folic Acid (Folic Acid 1 Mg Tab) 1 mg PO DAILY TEGAN Stop: 05/30/20 08:59 Last Admin: 04/30/20 08:06 Dose: 1 mg Documented by: [id number] Thiamine HCl (Thiamine Hcl 100 Mg Tab) 100 mg PO DAILY TEGAN Stop: 05/30/20 08:59 Last Admin: 04/30/20 08:06 Dose: 100 mg Documented by: [id number] Coding Level of Care Code 32790 U Intl Hosp Care Lvl 3
[2020-04-30] MEDS ORDERED: ACETAMINOPHEN 325 MG TAB PO ONE (16:41)
--- NOTE | 2020-04-30 18:18 | Hospitalist Progress Note ---
Date of Service April 30, 2020 Assessment & Plan (1) Alcohol withdrawal: Recently admitted at [facility] on 04/24 and discharged to [facility] alcohol rehab on 04/25 Last alcohol drink as per 04/24 Alcohol level in the ER less than 3 Hx of Alcohol withdrawal in the past Received IV Ativan, Haldol and banana bag in the ER On gabapentin and Ativan alcohol withdrawal protocol Will taper change Libruim to 5mg x1 tomorrow, then d/c Continue thiamine and folic acid Continue monitor closely for DT Counseling on alcohol cessation Plan to go back to [facility] for inpatient alcohol rehab (2) Psychosis: (3) Depression: Suicidal ideation Possible related to alcohol withdrawal Vs underlying psychiatric condition and SSRI that can lead to psychosis/manic episode Psych consulted Recommended to hold the Escitalopram for now, but can resume at 10mg once mental status is back to baseline Currently denies any suicide case discussed with psych Will d/c 1 to 1 observation, and put on 15 minutes check Olanzapine prn for agitation, but has not been required it Cannot sign AMA Clinically improved significantly Continue monitor closely (4) Abnormal TSH: Possible related to acute illness Free T4 normal Will need to check TSH in 4 weeks (5) Hypokalemia: Mostly related to diarrhea Potassium on admission 2.8 K today 3.8 Continue monitor BMP Elevated BP Possible related to alcohol withdrawal and hospital setting BP stable If BP continues to elevate, will add clonidine prn Continue monitor BP Diarrhea resolved DVT px on lovenox subq Code status FULL CODE Disposition Medically stable to transfer to [facility] rehab tomorrow Admission and Anticipated Discharge Date Admission Date: April 29, 2020 Subjective Pt was seen and examined Lying in bed with no distress with one to one sitter and at bedside Pt said that he feels much better He is more awake today He said that he does not have anymore diarrhea Denies any chest pain, palpitation, dizziness and SOB Physical Exam Physical Exam: General- No acute distress Head- atraumatic Eyes- PERRL, EOMI, no nystagmus ENT- oropharynx clear Neck- supple, no JVD Lungs- clear to auscultation Heart- regular rhythm; no murmur Abdomen- normal bowel sounds, soft, nontender Extremities- no calf tenderness Neuro- alert, oriented x 3; PERRL, EOMI; no facial palsy; no dysarthria, + mild tremors and +fingers to touch Skin- warm & dry Results & Data Results & Data ([facility]) Vital Signs (Past 12 Hours) Vital Signs Temp Pulse Pulse Resp BP Pulse Ox 04/30/20 15:54 36.6 C 72 18 134/80 96 04/30/20 15:14 86 04/30/20 11:26 36.8 C 78 18 117/83 93 04/30/20 08:00 64 04/30/20 07:48 36.9 C 65 18 143/86 H 95
[2020-05-01] MEDS ORDERED: ACETAMINOPHEN 325 MG TAB PO PRN (00:32)
[2020-05-01] MEDS ORDERED: cloNIDine HCL 0.1 MG TAB PO ONE (04:17)
[2020-05-01] MEDS ORDERED: LORazepam 0.5 MG TAB PO STA (04:17)
[2020-05-01] MEDS: GABAPENTIN 600 MG TAB PO SCH (05:55)
[2020-05-01 07:59] LABS: Basophils # (auto) 0.04 K/uL (0-0.2); Basophils % (auto) 1.3 %; Eosinophils % (auto) 3.2 %; Hematocrit (blood only) 36.2 % (42-52); Hemoglobin 12.3 g/dL (14.0-18.0); Immature Granulocytes # (auto) 0.01 K/uL (0.00-0.02); Immature Granulocytes % (auto) 0.3 %; Lymphocytes # (auto) 1.01 K/uL (1.2-3.4); Lymphocytes % (auto) 31.9 %; Mean Corpuscular Hemoglobin 31.9 pg (25-34); Mean Corpuscular Volume 93.8 fL (80-100); Monocytes # (auto) 0.38 K/uL (0.11-0.59); Neutrophils # (auto) 1.63 K/uL (1.4-6.5); Neutrophils % (auto) 51.3 %; Platelet Count 147 K/uL (130-400); RDW Coefficient of Variation 13.7 % (11.5-14.5); RDW Standard Deviation 46.8 fL (36.4-46.3); Red Blood Count 3.86 M/uL (4.7-6.1); White Blood Count 3.17 K/uL (4.8-10.8)
[2020-05-01] MEDS: ENOXAPARIN INJ 40 MG/0.4 ML SYR SQ SCH (08:14)
[2020-05-01] MEDS: CYANOCOBALAMIN 500 MCG TABLET (VITAMIN B-12) PO SCH (08:14)
[2020-05-01] MEDS: FOLIC ACID 1 MG TAB PO SCH (08:14)
[2020-05-01] MEDS: THIAMINE HCL 100 MG TAB PO SCH (08:14)
[2020-05-01 08:34] LABS: Alanine Aminotransferase 40 U/L (12-78); Albumin Level 3.3 gm/dl (3.4-5.0); Aspartate Aminotransferase 50 U/L (15-37); Blood Urea Nitrogen 8 mg/dl (7-18); Calcium 8.7 mg/dl (8.5-10.1); Carbon Dioxide 30 mmol/L (21-32); Chloride 108 mmol/L (98-107); Est GFR (African American) 105.8; Est GFR (Non-African American) 91.3; Glucose 95 mg/dl (70-99); Potassium 3.9 mmol/L (3.5-5.1); Sodium 141 mmol/L (136-145)
[2020-05-01 08:37] LABS: Alkaline Phosphatase 81 U/L (45-117); Bilirubin,Total 0.5 mg/dl (0.2-1); Globulin 3.3 gm/dl (2.5-4.0); Total Protein 6.6 gm/dl (6.4-8.2)
[2020-05-01] MEDS ORDERED: chlordiazePOXIDE HCl 5 MG CAP PO ONE (09:00)
[2020-05-01 09:04] LABS: 7-Aminoclonaz, Confirm NEGATIVE ng/mL (<25); Hydro-Alp Ur, GC/MS NEGATIVE ng/mL (<25); Hydroxyethylflurazepam, Conf NEGATIVE ng/mL (<50); Hydroxymidazolam Ur, GC/MS NEGATIVE ng/mL (<50); Hydroxytriazolam NEGATIVE ng/mL (<50); Lorazepam, Ur GC/MS 674 ng/mL (<50); Nordiazepam, Confirm 251 ng/mL (<50); Oxazepam Ur, GC/MS 102 ng/mL (<50); Temazepam, Confirm 359 ng/mL (<50)
--- NOTE | 2020-05-01 09:57 | Psychiatric Progress Note ---
Date of Service May 01, 2020 Impression / Recommendations Impression The most likely explanation is that his withdrawal was not adequately treated and he became delirious as a result. He expresses concerns that he was given the wrong medication at [facility], believing he was given Celexa, but the records indicate he was given escitalopram, although the dose was increased from 10 mg to 20 mg. His home dose of mirtazapine was also discontinued, but that would not be likely to cause acute mental status changes. It is possible there is occult substance use we are unaware of, as although his UDS here was negative, many substances are not detected on our drug screen, although he denies using anything other than prescribed medications. He has been diagnosed with depression and treated with antidepressants, and has no history of manic episodes or primary thought disorder, and symptoms are not consistent with a psychiatric disorder but rather with delirium. -Patient is returned to baseline, no psychiatric symptoms currently, psychiatrically stable to return to rehab to address his alcoholism. -Continue treatment of alcohol withdrawal per protocol (gabapentin and chlordiazepoxide tapers with lorazepam as needed per [facility]). -Mirtazapine and escitalopram have been held; these can be resumed if needed once he has completed withdrawal. -Low risk for harm to self and others, as no history of self-injurious behavior/suicide attempts, violence towards others, threats toward self or others, and no mood symptoms currently. The statements he made at [facility] were in the context of acute mental status changes, resolved quickly with treatment of his alcohol withdrawal, and he had no act of furtherance. Interval History Identifying Information Patient with history of alcoholism and depression who was transferred from [facility] rehab for altered mental status. He was seen by Lynnette FUENTES yesterday for initial psychiatric consultation, and is seen today for follow-up. Chief Complaint "I'm great, I'm good". Subjective Subjective Patient was seen & assessed and interval progress reviewed with the liaison nurse. When he initially presented, he was acutely agitated, tachycardic, hypertensive to 219/130, anxious, sweating, disorganized. He received Haldol and Ativan in the ER, and was started on AWSS withdrawal protocol. He slept much of his first day in the hospital, and nursing notes indicate he has been calm and cooperative since the evening of 04/29/2020, alert and oriented, slept overnight, and has been independent with ADLs. He is consistently denied thoughts of harming himself or others, and has not been agitated or threatening. He continues to receive the gabapentin withdrawal taper, as well as Librium taper, and has received Ativan (2 mg on 04/28/2020 and 0.5 mg on 04/30/2020) per [facility] withdrawal protocol. His home psychotropic medications have been held. Vital signs have been stable with the exception of a few mildly elevated blood pressures. On my assessment, he is calm and cooperative, is sitting up in bed, states he feels back to his normal self. Describes mood is good, denies symptoms of depression, anxiety, hallucinations, paranoia, thoughts of harming himself or others. He is able to recall the events of the past week, states he presented to [facility] 04/23/2020, was treated for alcohol withdrawal there for 2 days and then transferred to [facility] rehab on , 04/25/2020. He states that on Wednesday night he had an acute onset of racing thoughts which he described as "rambling, coming faster and faster, got really agitated, felt like I couldn't stop the thoughts from coming, disorganized." He felt fearful and thought he was going to , so went to nursing staff and told him he needed to go to the hospital. She took him outside to get fresh air, and he said "it kept getting worse and worse, felt like I was coming apart." He said he repeatedly asked to go to the hospital and was becoming frustrated and "said some things I shouldn't have said," that he would harm himself or others. He denies that he ever intended to act on these thoughts and denies ever having thoughts like this in the past. He says he has never harmed himself or anyone else, "I'm not a violent person." He denies ever having a similar experience in the past, even when going through withdrawal, and denies any history of lyndon or racing thoughts. He is able to review his outpatient medications, including escitalopram 10 mg daily (was receiving 20 mg daily at [facility]) mirtazapine 15 mg at bedtime (was not given at [facility]), and Ativan as needed (discontinued). Records from [facility] rehab reviewed: Patient was started on a Valium taper on presentation there 04/25/2020, 5 mg twice daily x1 day, then 5 mg at bedtime x2 days, then 2.5 mg at bedtime x2 days, then stop. He was on the last day of his taper. There are no records sent of his scores on withdrawal protocol or vital signs. Physical Exam Psychiatric Orientation: alert and cooperative Apperance: appropriately dressed and appeared stated age Eye Contact: good eye contact Motor Behavior: steady gait and station and + tremor Speech: normal rate/rhythm/volume of speech Affect: euthymic affect and mood congruent with affect "Good." Thought Process: goal directed thought process and linear/logical thought process Thought Content: reality based without delusions Suicidal Thoughts: denies suicidal thoughts Homicidal Thoughts: denies homicidal thoughts Hallucinations: no auditory hallucinations and no visual hallucinations Cognition: recent memory grossly intact, remote memory grossly intact, attention grossly intact and language grossly intact Estimated Intelligence: average estimated intelligence Insight: good insight Judgement: + fair judgement Vital Signs (Past 24 Hours) Last Vital Signs Temp 36.7 C 05/01/20 07:14 Pulse 66 05/01/20 07:14 Resp 16 05/01/20 07:14 BP 133/76 05/01/20 07:14 Pulse Ox 97 05/01/20 07:14 Results & Data ([facility]) Laboratory Results Laboratory Results - last 24 hr 04/29/20 05/01/20 05/01/20 06:28 07:41 07:41 WBC 3.17 L RBC 3.86 L Hgb 12.3 L Hct 36.2 L MCV 93.8 MCH 31.9 MCHC 34.0 RDW Std Deviation 46.8 H RDW Coeff of Patti 13.7 Plt Count 147 MPV 9.0 Immature Gran % (Auto) 0.3 Neut % (Auto) 51.3 Lymph % (Auto) 31.9 Kendall % (Auto) 12.0 Eos % (Auto) 3.2 Baso % (Auto) 1.3 Neut # (Auto) 1.63 Lymph # (Auto) 1.01 L Kendall # (Auto) 0.38 Eos # (Auto) 0.10 Baso # (Auto) 0.04 Immature Gran # (Auto) 0.01 Sodium 141 Potassium 3.9 Chloride 108 H Carbon Dioxide 30 Anion Gap 3.0 BUN 8 Creatinine 0.91 Est Cr Clr Drug Dosing Not Reportable Est GFR ( Amer) 105.8 Est GFR (Non-Af Amer) 91.3 BUN/Creatinine Ratio 9.0 L Glucose 95 Calcium 8.7 Phosphorus 3.0 Total Bilirubin 0.5 AST 50 H ALT 40 Alkaline Phosphatase 81 Total Protein 6.6 Albumin 3.3 L Globulin 3.3 Albumin/Globulin Ratio 1.0 Vitamin B12 Thyroxine (T4) Free T3 Total T3 U OH-Alprazolam Confrm NEGATIVE 7-Amino Clonazepam NEGATIVE Ur Nordiazepam Confirm 251 H U OH-ethylflurazepam NEGATIVE U Lorazepam Cnf GC/MS 674 H U Oxazepam Confm GC/MS 102 H Ur Temazepam Confirm 359 H U OH-Triazolam Confirm NEGATIVE U OH-Midazolam Confirm NEGATIVE Drug Screen Comment SEE NOTE RPR 05/01/20 05/01/20 05/01/20 07:41 07:41 07:41 WBC RBC Hgb Hct MCV MCH MCHC RDW Std Deviation RDW Coeff of Patti Plt Count MPV Immature Gran % (Auto) Neut % (Auto) Lymph % (Auto) Kendall % (Auto) Eos % (Auto) Baso % (Auto) Neut # (Auto) Lymph # (Auto) Kendall # (Auto) Eos # (Auto) Baso # (Auto) Immature Gran # (Auto) Sodium Potassium Chloride Carbon Dioxide Anion Gap BUN Creatinine Est Cr Clr Drug Dosing Est GFR ( Amer) Est GFR (Non-Af Amer) BUN/Creatinine Ratio Glucose Calcium Phosphorus Total Bilirubin AST ALT Alkaline Phosphatase Total Protein Albumin Globulin Albumin/Globulin Ratio Vitamin B12 1309 H Thyroxine (T4) Pending Free T3 Pending Total T3 Pending U OH-Alprazolam Confrm 7-Amino Clonazepam Ur Nordiazepam Confirm U OH-ethylflurazepam U Lorazepam Cnf GC/MS U Oxazepam Confm GC/MS Ur Temazepam Confirm U OH-Triazolam Confirm U OH-Midazolam Confirm Drug Screen Comment RPR Pending Current Inpatient Medications Current Inpatient Medications: Current Inpatient Medications Acetaminophen (Acetaminophen 325 Mg Tab) 325 mg PO Q6H PRN PRN Reason: Mild Pain Stop: 05/31/20 00:31 Last Admin: 05/01/20 00:44 Dose: 325 mg Documented by: Cyanocobalamin (Cyanocobalamin 500 Mcg Tablet (Vitamin B-12)) 1,000 mcg PO DAILY TEGAN Stop: 05/30/20 08:59 Last Admin: 05/01/20 08:14 Dose: 1,000 mcg Documented by: Enoxaparin Sodium (Enoxaparin Inj 40 Mg/0.4 Ml Syr) 40 mg SQ QAM TEGAN Stop: 05/30/20 08:59 Last Admin: 05/01/20 08:14 Dose: 40 mg Documented by: Folic Acid (Folic Acid 1 Mg Tab) 1 mg PO DAILY TEGAN Stop: 05/30/20 08:59 Last Admin: 05/01/20 08:14 Dose: 1 mg Documented by: Gabapentin (Gabapentin 600 Mg Tab) 600 mg PO Q12H TEGAN Stop: 05/02/20 06:01 Gabapentin (Gabapentin 600 Mg Tab) 600 mg PO Q24H TEGAN Stop: 05/03/20 06:01 Lorazepam (Ativan) 1 mg in 2 mls @ 2 mls/min IV ONE PRN; Protocol PRN Reason: EtoH Withdrawal AWSS 6-10 Stop: 05/29/20 14:19 Loperamide HCl (Loperamide Hcl 2 Mg Cap) 2 mg PO Q6 PRN PRN Reason: Diarrhea Stop: 05/30/20 09:19 Olanzapine (Olanzapine Zydis 5 Mg Orally Dis. Tab) 2.5 mg PO TID PRN PRN Reason: Agitation Stop: 05/29/20 21:21 Olanzapine (Olanzapine 10 Mg/2.1 Ml Sdv) 2.5 mg IM TID PRN PRN Reason: Agitation Stop: 05/29/20 21:25 Thiamine HCl (Thiamine Hcl 100 Mg Tab) 100 mg PO DAILY TEGAN Stop: 05/30/20 08:59 Last Admin: 05/01/20 08:14 Dose: 100 mg Documented by:
[2020-05-01 10:14] LABS: T4 Thyroxine 3.9 mcg/dl (4.5-10.9)
[2020-05-01 10:15] LABS: T3 Free 3.03 pg/ml (2.3-4.2); T3 Total 0.88 ng/ml (0.60-1.81)
[2020-05-01] MEDS ORDERED: MIRTAZAPINE TAB 15 MG TAB PO PRN (13:18)
--- NOTE | 2020-05-01 13:52 | Hospitalist Progress Note ---
Date of Service May 01, 2020 Assessment & Plan (1) Alcohol withdrawal: -This is a patient who was recently admitted at [facility] on 04/24/2020 and discharged to [facility] for treatment of alcohol rehab; Last alcohol drink as per 04/24/2020, who was was sent from [facility] alcohol rehab to [facility] for admission after patient became agitated and aggressive and concerns of suicidal ideations or psychosis -Alcohol level in the ER less than 3, placed gabapentin and Ativan alcohol withdrawal protocol, given thiamine and folic acid on this admission -patient cooperative on this admission and passed the psychiatry consul assess ments --thyroid function mildly abnormal, normal serum folic acid levels, serum B12 levels are not deficient, RPR levels drawn on 05/01/2020 -discharge to to [facility] to complete treatment of alcohol cessation/rehab (2) Psychosis: ruled out (3) Depression: Suicidal ideation -patient may resume home dose Escitalopram on discharge to to [facility] to complete treatment of alcohol cessation/rehab -patient requested that home dose mirtazipine be continued in the alcohol rehab because he was lacking sleep with it, patient may take Mirtazapine 15 mg qhs for depression and insomnia -patient was evaluated by psychiatry consult and the 302 as been lifted by psychiatry -Dr. Byers from psychiatry commented that the "The most likely explanation is that his withdrawal was not adequately treated and he became delirious as a result...Low risk for harm to self and others, as no history of self-injurious behavior/suicide attempts, violence towards others, threats toward self or others, and no mood symptoms currently. The statements he made at [facility] were in the context of acute mental status changes, resolved quickly with treatment of his alcohol withdrawal, and he had no act of furtherance." (4) Abnormal TSH: -mildly elevated TSH 5.2 uIu/ml total T4 mildly low as 3.9 mcg/dl Free T4 normal total T3 normal Free T3 normal -Will need to check thyroid function tests in 4 weeks by a primary care doctor (5) Hypokalemia: -Mostly related to diarrhea -Potassium on admission 2.8 -serum potassium normalized after supplementation on this admission Diarrhea -resolved Code status FULL CODE Admission and Anticipated Discharge Date Admission Date: April 29, 2020 Subjective left eye pupil mildly dilated, is chronic as per patient and his from previous history of eye injury in the past with some 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 no pain. no shortness of breath. breathing on room air. Patient acting normally. His and him are in agreement to go back to alcohol rehab facility Review of Systems Review of Systems: All systems reviewed & are unremarkable except as noted in Subjective Physical Exam Constitutional: comfortable Eyes: EOM intact bilaterally (left eye pupil mildly dilated, is chronic as per patient and his ) ENMT: external ear and nose normal, oropharynx normal Neck: normal visual inspection Respiratory: normal respiratory effort, lungs clear to auscultation Cardiovascular: Rate/Rhythm: regular rate Gastrointestinal (Abdomen): Inspection/Auscultation: normal bowel sounds Percussion/Palpation: abdomen soft Neurologic: moves all extremities Psychiatric: A+Ox3, euthymic affect Results & Data Results & Data ([facility]) Vital Signs (Past 12 Hours) Vital Signs Temp Pulse Pulse Resp BP Pulse Ox 05/01/20 11:31 36.4 C L 68 18 133/75 95 05/01/20 10:00 55 L 05/01/20 07:14 36.7 C 66 16 133/76 97 05/01/20 04:00 36.8 C 61 20 170/95 H 95
--- NOTE | 2020-05-01 14:06 | Discharge Summary ---
Date of Service May 01, 2020 Admission HPI Per Admitting Provider 59 years old male with past medical history of alcohol withdrawal, alcohol abuse, suicidal ideation, anxiety disorder was sent from [facility] alcohol rehab after patient became agitated and aggressive. Patient was recently admitted at [facility] on 04/24 then discharged on 04/25 to [facility] rehab for alcohol abuse and suicidal ideation. In the last admission at [facility], patient was having suicidal thoughts where he expressed about having a loaded gun at home. Now patient developed hallucination, psychosis behavior while getting treatment for alcohol. said that last night pt became diaphoresis, confused with aggressive behavior at [facility] rehab. Blood pressure was elevated. at bedside said patient drinks about 12 pack of beer daily. No prior history of DT, but patient has history of alcohol withdrawal in the past as per . Patient said he is depressed and his mind is racing and he is dealing with a lot right now. said that he was having diarrhea at [facility] that seems to improve. Currently denies any suicidal ideation, or any thoughts of hurting himself or others, chest pain, palpitation, shortness of breath or hearing any voice. Currently on RM A6 lying in bed very calm and cooperative. Principal Diagnosis Alcohol withdrawal with altered mental status on admission Suicidal ideations (evaluated) Depression Hypokalemia Abnormal TSH (Thyroid Stimulating Hormone) Discharge Exam Constitutional comfortable Eyes EOM intact bilaterally (left eye pupil mildly dilated, is chronic as per patient and his ) ENMT external ear and nose normal, oropharynx normal Neck normal visual inspection Respiratory normal respiratory effort, lungs clear to auscultation Cardiovascular Rate/Rhythm: regular rate Gastrointestinal (Abdomen) Inspection/Auscultation: normal bowel sounds Percussion/Palpation: abdomen soft Neurologic moves all extremities Psychiatric A+Ox3, euthymic affect Discharge Data Allergies Allergy/AdvReac Type Severity Reaction Status Date / Time No Known Drug Allergies Allergy Unknown . Verified 01/27/16 11:03 Consultations 04/29/20 08:01 ED Decision to Admit Stat 04/29/20 16:39 Consult Psychiatry Routine Ordered Studies 04/29/20 06:05 CT head/brain wo con Urgent Hospital Course (1) Alcohol withdrawal: -This is a patient who was recently admitted at [facility] on 04/24/2020 and discharged to [facility] for treatment of alcohol rehab; Last alcohol drink as per 04/24/2020, who was was sent from [facility] alcohol rehab to [facility] for admission after patient became agitated and aggressive and concerns of suicidal ideations or psychosis -Alcohol level in the ER less than 3, placed gabapentin and Ativan alcohol withdrawal protocol, given thiamine and folic acid on this admission -patient cooperative on this admission and passed the psychiatry consul assessments --thyroid function mildly abnormal, normal serum folic acid levels, serum B12 levels are not deficient, RPR levels drawn on 05/01/2020 -discharge to to [facility] to complete treatment of alcohol cessation/rehab (2) Psychosis: ruled out (3) Depression: Suicidal ideation -patient may resume home dose Escitalopram on discharge to to [facility] to complete treatment of alcohol cessation/rehab -patient requested that home dose mirtazipine be continued in the alcohol rehab because he was lacking sleep with it, patient may take Mirtazapine 15 mg qhs for depression and insomnia -patient was evaluated by psychiatry consult and the 302 as been lifted by psychiatry -Dr. Byers from psychiatry commented that the "The most likely explanation is that his withdrawal was not adequately treated and he became delirious as a result...Low risk for harm to self and others, as no history of self-injurious behavior/suicide attempts, violence towards others, threats toward self or others, and no mood symptoms currently. The statements he made at [facility] were in the context of acute mental status changes, resolved quickly with treatment of his alcohol withdrawal, and he had no act of furtherance." (4) Abnormal TSH: -mildly elevated TSH 5.2 uIu/ml total T4 mildly low as 3.9 mcg/dl Free T4 normal total T3 normal Free T3 normal -Will need to check thyroid function tests in 4 weeks by a primary care doctor (5) Hypokalemia: -Mostly related to diarrhea -Potassium on admission 2.8 -serum potassium normalized after supplementation on this admission Diarrhea -resolved Code status FULL CODE Total Time Total Time Spent Total Time Spent (In Minutes): 40 minutes Total Time Includes: Examination of the Patient, Discharge Planning, Medication Reconciliation and Communication With Other Providers Discharge Plan Discharge Items Patient Disposition: Drug & Alcohol Rehab Reason For Visit: ALCOHOL WITHDRAWAL Discharge Diagnosis: Alcohol withdrawal with altered mental status on admission Suicidal ideations (evaluated) Depression Hypokalemia Abnormal TSH (Thyroid Stimulating Hormone) Condition on Discharge: Good Activity: Resume your previous activity Non-emergency contact: Primary Care Provider Call non-emergency contact if: you have any medication questions Follow-up/Referrals: Sylvia Reza [Primary Care Provider] - Diet: Regular Addtl Attending Provider Instructions: discharge to [facility]; to complete treatment of alcohol cessation patient may take Mirtazapine 15 mg qhs for depression and insomnia other follow ups mildly elevated TSH 5.2 uIu/ml total T4 mildly low as 3.9 mcg/dl Free T4 normal total T3 normal Free T3 normal Will need to check thyroid function tests in 4 weeks by a primary care doctor Pending Studies at Discharge: No Studies:: RPR from 05/01/2020 are pending Stand-Alone [facility] Resources Skilled Items Patient informed of condition?: Yes DNR: No Discharge Level of Care: Other Communicable Disease: No Discharge Prognosis: Stable Lines: None Urinary Catheter: No Medications and DC Order Prescriptions: New mirtazapine 15 mg Tablet 15 mg PO HS 30 Days Qty: 30 RF: 0 Continued thiamine HCl (vitamin B1) 100 mg Tablet 100 mg PO DAILY RF: 0 folic acid 1 mg Tablet 1 mg PO DAILY RF: 0 diazepam [Valium] 5 mg Tablet 5 mg PO DAILY RF: 0 escitalopram oxalate [Lexapro] 20 mg Tablet 20 mg PO DAILY RF: 0 vitamin T28-ludbe acid 1,000 mcg PO DAILY RF: 0 Discharge Orders: Discharge Order (Routine); Ordered 05/01/20 Ordered By: Bobby Carnes Admission Data Admit Date/Time: 04/29/20 09:27 Attending Provider: Bobby Carnes Admit Provider: Andrez Aguilar Primary Care Provider: Sylvia Reza Other Providers: Andrez Aguilar ; Susannah Byers
[2020-05-01] MEDS ORDERED: GABAPENTIN 600 MG TAB PO SCH (18:00)
[2020-05-02] MEDS ORDERED: GABAPENTIN 600 MG TAB PO SCH (06:00)
[2020-05-03] MEDS ORDERED: GABAPENTIN 600 MG TAB PO SCH (06:00)
== END 2020-05-01 16:25 | disposition alcohol treatment (31) | DRG 897 ==
LOC: ED 02:37 → 2W 09:27 → SUATTDRO 09:27 → 2W 12:24